=== PATIENT | female | born 1975 | race Caucasian/White ===

== ENCOUNTER → 2018-03-06 23:52 | Outpatient (CLI) | payer MEDICAID | END | disposition home or self-care (01) | LOC: D.MAMMO 13:00 | DX: N63.11 Unspecified lump in the right breast, upper outer quadrant (principal) ==

== ENCOUNTER → 2019-01-28 09:39 | Outpatient (CLI) | payer MEDICAID | END | disposition home or self-care (01) | LOC: D.MRI 09:39 | PROVIDERS: ATTEND Clinical Nurse Specialist Family Health | DX: S62.600A Fracture of unspecified phalanx of right index finger, initial encounter for closed fracture (principal); X58.XXXA Exposure to other specified factors, initial encounter ==

== ENCOUNTER → 2019-04-17 10:43 | Outpatient (CLI) | payer MEDICAID ==
--- NOTE | 2019-04-19 16:51 | ST ---
PATIENT:JAVI MANDEL MEDICAL RECORD: [id number] SEX: F LOCATION:[facility] ORDER #: ADMISSION DATE: 04/17/19 AGE OF PATIENT: 44 REFERRING PHYSICIAN: INTERPRETING PHYSICIAN: DAR GONZALEZ MD DATE OF SERVICE: 04/17/2019 PROCEDURE: Nuclear stress test. INDICATIONS: Chest pain and shortness of breath. She was exercised on a standard Alex protocol for 6 minutes 15 seconds achieving greater than 85% of maximum target heart rate response with 27 mCi of sestamibi injected at peak stress, 9 mCi used previously for rest images. FINDINGS: Gated SPECT reveals preserved ejection fraction at 67% with good wall motion and thickening and brightening throughout all segments. SPECT imaging: Cardiolite was used as myocardial perfusion agent. There is homogeneous uptake throughout all segments at rest and stress with no evidence of inducible ischemia or previous infarction. OVERALL IMPRESSION: 1. This is a normal nuclear stress test with no evidence of inducible ischemia or previous infarction. 2. Gated SPECT reveals a preserved ejection fraction at 67%. In this patient with ongoing symptomatology, the current scan does not suggest the presence of hemodynamically significant coronary artery disease. Evaluate noncardiac etiology of chest pain. TRANSINT:[id number] Voice Confirmation ID: [id number] DOCUMENT ID: [id number] DAR GONZALEZ MD at 1651 CC: RISA RUIZ [id number] DICTATION DATE: 04/17/19 1646 SHEET METAL TECHNICIAN: 04/18/19 0059 DEP CLI 04/17/19 [facility] [address] [place] [address]
--- NOTE | 2019-04-19 16:51 | EC ---
PATIENT:JAVI MANDEL DATE OF SERVICE: 04/17/19 SEX: F MEDICAL RECORD: [id number] DATE OF : [birth year] LOCATION:[facility] AGE OF PATIENT: 44 ADMISSION DATE: 04/17/19 REFERRING PHYSICIAN: INTERPRETING PHYSICIAN: DAR CUTLER MD ECHOCARDIOGRAM REPORT ECHO CHARGES 4 ECHO COMPLETE Date: 04/17/19 CLINICAL DIAGNOSIS: MURMUR ECHOCARDIOGRAPHIC MEASUREMENTS (adult normal given) AC root (d.<3.7cm) 3.1 cm LV Septum d (<1.2 cm> 1.1 cm Valve Excursion 1.9 cm LV Septum (systole) 1.3 cm Left Atria (s.<4.0cm> 3.3 cm LVPW d(<1.2cm) 1.1 cm RV (d.<2.3cm) 2.9 cm LVPW (sytole) 1.4 cm LV diastole(<5.6CM) 4.3 cm MV E-F(>70mm/sec) cm LV systole 2.8 cm LVOT Diameter 1.7 cm MV exc.(>10mm) 1.9 cm Est.ejection fraction (50-75%) % DOPPLER: LVIT cm/sec A 74.0 cm/sec E 102 cm/sec LA cm/sec RVSP 27 mmHg LVOT 100 cm/sec AOP1/2T m/s Asc. Ao 114 cm/sec RVOT 91 cm/sec RA cm/sec PA 98 cm/sec AV Gradient Peak 5.21 mmHg AV Mean 2.93 mmHg AV Area 1.7 cm MV Gradient Peak 4.39 mmHg MV Mean 1.40 mmHg MV Area cm COMMENTS: Foot Miter Operator: Petrona SAL Agitator Operator: 1 Dr. Cutler TAPE# PACS Pericardial Effusion N DATE OF SERVICE: 04/17/2019 FINDINGS: 1. Left ventricular chamber size is within normal limits. Left ventricular systolic function is normal. Overall ejection fraction is estimated at 65%. 2. Left atrium, right atrium, and right ventricular chamber sizes are within normal limit. 3. Valvular structures have normal structure and motion. 4. Doppler interrogation reveals mild mitral regurgitation and mild tricuspid regurgitation. No other valvular insufficiency or stenosis. Pulmonary systolic ECHOCARDIOGRAM REPORT [id number] JAVI MANDEL pressure is estimated at 27 mmHg. 5. No evidence of pericardial effusion or left ventricular thrombus. TRANSINT:[id number] Voice Confirmation ID: [id number] DOCUMENT ID: [id number] DAR CUTLER MD at 1651 CC: [id number] DICTATION DATE: 04/17/19 1605 NIGHT SUPERVISOR: 04/17/19 1844 DEP CLI 04/17/[address] [facility] [address] [place] [id number]
== END | disposition home or self-care (01) ==
LOC: D.HCCARDIO 10:43
PROVIDERS: ATTEND Internal Medicine Interventional Cardiology
DX: R01.1 Cardiac murmur, unspecified (principal); R07.9 Chest pain, unspecified